=== PATIENT | female | born 1980 | race Caucasian/White ===

== ENCOUNTER 2018-09-09 13:45 | Emergency (ER) | payer OTHER ==
[~2018-09-09] VITALS: Ht 157.5 cm; Wt 100.2 kg
[2018-09-09 13:55] VITALS: Ht 157.5 cm; Wt 100.2 kg
[2018-09-09 16:13] VITALS: BP 120/64
== END 2018-09-09 16:13 | disposition home or self-care (01) ==
LOC: ED 13:45
DX: S20.212A Contusion of left front wall of thorax, initial encounter (principal); S30.1XXA Contusion of abdominal wall, initial encounter; S63.613A Unspecified sprain of left middle finger, initial encounter; S63.615A Unspecified sprain of left ring finger, initial encounter; W22.8XXA Striking against or struck by other objects, initial encounter; Y93.89 Activity, other specified; Y92.89 Other specified places as the place of occurrence of the external cause; Y99.8 Other external cause status

== ENCOUNTER 2018-11-04 11:38 | Emergency (ER) | payer OTHER ==
[~2018-11-04] VITALS: Ht 162.6 cm; Wt 96.2 kg
[2018-11-04 11:47] VITALS: Ht 162.6 cm; Wt 96.2 kg
[2018-11-04 12:22] LABS: BASOPHIL % 0.6 % (0-2); PLATELET COUNT 271 x10^3mcL (130-400)
[2018-11-04 12:30] LABS: CALCIUM 8.5 mg/dL (8.5-10.1); CARBON DIOXIDE 23.3 mmol/L (21-32); CHLORIDE SERUM 106 mmol/L (98-107); CREATININE SERUM 0.9 mg/dL (0.6-1.0); GFR1 > 60 mL/min; GLUCOSE SERUM 131 mg/dL (74-106); POTASSIUM SERUM 3.7 mmol/L (3.5-5.1); SODIUM SERUM 143 mmol/L (136-145)
[2018-11-04 12:34] LABS: RED CELL DISTRIBUTION WIDTH 18.9 % (11.5-14.5)
[2018-11-04 12:35] LABS: ALKALINE PHOSPHATASE 55 U/L (46-116); ALT/SGPT 40 U/L (14-59); AST/SGOT 35 U/L (15-37); BILIRUBIN TOTAL 1.21 mg/dL (0.20-1.00)
[2018-11-04 12:39] LABS: TOTAL PROTEIN, SERUM 8.3 g/dL (6.4-8.2)
[2018-11-04 14:55] VITALS: BP 110/68
== END 2018-11-04 14:55 | disposition home or self-care (01) ==
LOC: ED 11:38
PROVIDERS: Emergency Medicine
DX: S30.1XXA Contusion of abdominal wall, initial encounter (principal); M54.9 Dorsalgia, unspecified; X58.XXXA Exposure to other specified factors, initial encounter; Y93.89 Activity, other specified; Y92.89 Other specified places as the place of occurrence of the external cause; Y99.8 Other external cause status
CPT/HCPCS: J1885; J2270; J2405; J7030